=== PATIENT | male | born 1995 | race Caucasian/White ===

== ENCOUNTER 2016-07-24 12:27 | Emergency (ER) | payer OTHER ==
[~2016-07-24] VITALS: Ht 182.9 cm; Wt 86.5 kg
[~2016-07-24 12:27] MED LIST: ABIL15TA2 PO; BUPR-175 PO; IBUP-232 PO; ROBA750T3 PO; VALP250C PO; ZOLO50TA PO
[2016-07-24 12:29] VITALS: BP 146/74; PULSE 74; RESP 20; TEMP 98.9; O2SAT 99
--- NOTE | 2016-07-24 13:03 | PD ---
Physical Exam Time Seen by Provider: 13:02 Narrative 20 yo M with R knee injury playing football yesterday. Denies fever, vomiting. VSS Seen in triage, awaiting bed placement. Data Data Last Documented VS Vital Signs Date Time Temp Pulse Resp B/P Pulse Ox O2 Delivery O2 Flow Rate FiO2 07/24/16 12:29 98.9 74 20 146/74 99 Room Air [facility] Supervised Visit with MADHURI: Zaynab Stoll Jul 24, 2016 13:03
[2016-07-24] MEDS ORDERED: ZOLO50TA PO (13:10)
[2016-07-24] MEDS ORDERED: IBUPROFEN 800 MG TAB PO ONE (13:45)
--- NOTE | 2016-07-24 14:00 | PD ---
HPI . right knee pain Chief Complaint: Injury Time Seen by Provider: 13:31 Travel History International Travel<30 days: No Contact w/Intl Traveler<30days: No Traveled to known affect area: No History of Present Illness HPI 20-year-old male with history of childhood asthma here with complaints of right knee pain. Patient was playing football last night when he somehow hurt his right knee. He is now complaining of pain to the right medial knee rated 7/10 without any radiation. He took ibuprofen 800mg this morning and had some relief. He was provided crutches by [facility]. He is here as he thinks there may be something wrong with his knee. He has difficulty ambulating and moving it. He denies any other injury. [facility] Past Medical History Depression: Yes Diminished Hearing: No Tetanus Vaccination: < 5 Years Influenza Vaccination: Yes Past Surgical History Oral Surgery: Yes Other Surgery: Yes (POLYNIDAL CYST REMOVED) Social History Alcohol Use: No Tobacco Use: No Substance Use: No Allergies-Medications (Allergen,Severity, Reaction): Coded Allergies: No Known Allergies (Unverified , 07/24/16) Reported Meds & Prescriptions Reported Meds & Active Scripts Active Ibuprofen 800 Mg Tab 800 Mg PO TID Reported Zoloft (Sertraline HCl) 50 Mg Tab 50 Mg PO DAILY Review of Systems General / Constitutional: No: Fever Eyes: No: Visual changes HENT: No: Headaches Cardiovascular: No: Chest Pain or Discomfort Respiratory: No: Shortness of Breath Gastrointestinal: No: Abdominal Pain Genitourinary: No: Dysuria Musculoskeletal: Positive: Pain (right knee pain) Skin: No Rash Neurologic: No: Weakness Psychiatric: No: Depression Endocrine: No: Polydipsia Hematologic/Lymphatic: No: Easy Bruising Physical Exam Narrative GENERAL: AAO x 3, no acute distress, Well-nourished, well-developed patient. SKIN: Warm and dry. No visible rashes or bruising. HEAD: Normocephalic and atraumatic. EYES: No scleral icterus. No injection or drainage. EOM intact, PERRLA ENT: No nasal drainage noted. Mucous membranes pink. Airway patent. NECK: Supple, trachea midline. No JVD. CARDIOVASCULAR: Regular rate and rhythm without murmurs, gallops, or rubs. RESPIRATORY: Breath sounds equal bilaterally. No accessory muscle use. No rhonchi or rales. GASTROINTESTINAL: Abdomen soft, non-tender, nondistended. EXTREMITIES: No cyanosis or edema. flexion and extension normal except for pain with movement, no edema or ecchymosis, no effusion present. tenderness with vargus stress testing BACK: Nontender without obvious deformity. No CVA tenderness. PSYCH: AAO x 3, normal affect. Data Data Last Documented VS Vital Signs Date Time Temp Pulse Resp B/P Pulse Ox O2 Delivery O2 Flow Rate FiO2 07/24/16 12:29 98.9 74 20 146/74 99 Room Air Orders Ibuprofen (Motrin) (07/24/16 13:45) Knee, Complete (4vws) (07/24/16 13:31) ^ Rajesh Bandage (07/24/16 14:32) MDM Medical Decision Making Medical Screen Exam Complete: Yes Emergency Medical Condition: Yes Medical Record Reviewed: Yes Differential Diagnosis Knee sprain, meniscal injury, less likely knee fracture Narrative Course 20-year-old male with history of childhood asthma here with complaints of right knee pain. Patient was playing football last night when he somehow hurt his right knee. He is now complaining of pain to the right medial knee rated 7/10 without any radiation. He took ibuprofen 800mg this morning and had some relief. He was provided crutches by [facility]. He is here as he thinks there may be something wrong with his knee. He has difficulty ambulating and moving it. He denies any other injury. Patient seen and examined. He does have some tenderness of the right knee. I do not suspect an acute fracture. I believe that he may have a meniscal injury. I explained to him that MRI would be the imaging of choice for such an injury. I recommend x-ray to rule out any type of acute bony abnormality. If that is normal he would be to follow-up with his primary care provider for further recommendations. I will provide an Rajesh wrap for stability and he can continue to use crutches to offload. He can use ibuprofen for pain control. xray without any acute abn. Rest the affected area as much as possible. Ice this area for 15-20 minutes at a time. You can do this every hour or as much as tolerated. Keep this area compressed (rajesh bandage) as tolerated. Elevate this area. Use ibuprofen as needed for pain and inflammation. Patient verbalized understanding of instructions, questions were answered, and thanked me for their care. I advised them if their condition worsens, please return to the nearest emergency room for further care. Diagnosis Primary Impression: Internal derangement of knee Qualified Code: M23.91 - Internal derangement of knee, right Patient Instructions: General Instructions Additional Instructions: Rest the affected area as much as possible. Ice this area for 15-20 minutes at a time. You can do this every hour or as much as tolerated. Keep this area compressed (rajesh bandage) as tolerated. Elevate this area. Use ibuprofen as needed for pain and inflammation. Please return to emergency department if your symptoms return or worsen. Follow up with your primary care provider. Take medications as prescribed. Med/Other Pt SpecificInfo: Prescription(s) given Scripts Ibuprofen 800 Mg [id number] Mg PO TID #21 TAB Prov:Crystal Rya MD 07/24/16 Disposition: 01 DISCHARGE HOME Condition: Stable Karina Lang Jul 24, 2016 14:00
[2016-07-24] MEDS ORDERED: IBUP800T23 PO (14:06)
--- NOTE | 2016-07-24 14:22 | RADRPT ---
EXAM DATE/TIME: 07/24/2016 14:02 [place] COMPARISON: No previous studies available for comparison. INDICATIONS : Right knee pain after playing football yesterday. MEDICAL HISTORY : None. SURGICAL HISTORY : None. ENCOUNTER: Initial ACUITY: 2 days PAIN SCORE: 7/10 LOCATION: Right medial knee. FINDINGS: Four view examination of the right knee demonstrates no evidence of fracture or dislocation. Bony mi neralization is normal. The articular surfaces are intact. The suprapatellar soft tissues have a no rmal configuration. CONCLUSION: No acute disease. Basil Khan MD on July 24, 2016 at 14:20 Board Certified Radiologist. This report was verified electronically.
== END 2016-07-24 15:06 | disposition home or self-care (01) ==
LOC: NEPK 12:27
DX: M23.91 Unspecified internal derangement of right knee (principal); Z87.09 Personal history of other diseases of the respiratory system; Z86.59 Personal history of other mental and behavioral disorders; X58.XXXA Exposure to other specified factors, initial encounter; Y93.61 Activity, american tackle football
CPT/HCPCS: 73564; 99283